=== PATIENT | female | born 1975 | race Two or more races ===

== ENCOUNTER → 2017-05-17 | Outpatient (CLI) | payer OTHER ==
--- NOTE | 2017-05-17 13:37 | REP ---
Digital diagnostic bilateral mammography with CAD and focused left breast sonography: History: Left breast lump. One lump is palpated by the patient and a separate area is palpated by the referring provider. One of these is described at 12 o'clock in the retroareolar region on the requisition. Comparison mammography July 06, 2016 and April 19, 2015. Mammographic findings: Radiopaque skin markers are affixed to the skin by the patient at the site of both the clinical breast exam lump and the patient's palpable lump. The former projects at approximately 12 o'clock and the latter in the upper outer quadrant of the left breast at 2 o'clock. Routine views of the left breast are augmented by magnified focal spot compression CC, MLO and true ML views. Breast parenchyma is heterogeneously dense in a pattern which inhibits the sensitivity of mammography. No neodensity is seen at the site of either palpable lump or elsewhere in either breast. No area of spiculation or architectural distortion is seen. No suspicious microcalcifications are observed. Sonographic findings: The left breast is examined from 11 o'clock to 12 o'clock in the area of the palpable abnormality. Heterogeneous fibroglandular background echotexture is seen. At 11 o'clock, 7.2 cm from the nipple is a 0.5 cm cyst. At 12 o'clock 2.3 cm from the nipple, there is a 0.4 cm cyst. This contains one or two tiny echogenic foci consistent with septation. No suspicious sonographic findings. Impression: BIRADS category II benign bilateral breast imaging. Dense breast parenchyma. Two small cysts seen by ultrasound in the region of the palpable lumps. This negative report should not dissuade one from biopsy of a palpable abnormality depending on its clinical characteristics. Clinical follow-up is recommended. BI-RADS/ACR category 2 mammogram. Benign finding(s). Routine annual screening mammography (for women over age 40). This mammogram was interpreted with the aid of an FDA-approved computer-aided detection system. The patient states she had a clinical breast exam in April 2017 The patient letter being requested is M2. Signed by Boris Allison MD 05/17/2017 03:06 P
== END ==
LOC: M RAD 11:03
PROVIDERS: ATTEND Midwife
DX: N60.12 Diffuse cystic mastopathy of left breast (principal)
CPT/HCPCS: 76642; G0204

== ENCOUNTER 2018-07-29 11:45 | Emergency (ER) | payer OTHER, SELFPAY ==
[2018-07-29 13:08] LABS: BASO # 0.1 10^3/uL (0.0-0.2); BASO % 0.7 % (0.0-1.0); EOS # 0.2 10^3/uL (0.0-0.50); EOS % 2.6 % (0.0-3.0); HEMATOCRIT 42.7 % (36.0-47.0); HEMOGLOBIN 13.8 g/dl (12.0-15.5); IMMATURE GRANULOCYTE % 0.5 % (0-3.0); LYMPH # 1.4 10^3/uL (1.5-4.5); LYMPH % 16.7 % (24.0-44.0); MEAN CORPUSCULAR HEMOGLOBIN 27.6 pg (27.0-33.0); MEAN CORPUSCULAR HGB CONC 32.3 g/dl (32.0-36.5); MEAN CORPUSCULAR VOLUME 85.4 fl (80.0-96.0); MONO # 0.5 10^3/uL (0.0-0.8); MONO % 5.5 % (0.0-5.0); NEUTROPHILS # 6.4 10^3/uL (1.8-7.7); PLATELET COUNT, AUTOMATED 261 10^3/uL (150-450); RED CELL DISTRIBUTION WIDTH 13.1 % (11.5-14.5); WHITE BLOOD COUNT 8.6 10^3/uL (4.0-10.0)
[2018-07-29 13:13] LABS: CONTROL LINE UCG INT CTR LINE PRESENT; URINE PREG TEST NEGATIVE (NEGATIVE)
[2018-07-29 13:14] LABS: AMORPHOUS SEDIMENT RFX SMALL (NEGATIVE); KETONE, URINE AUTO RFX NEGATIVE (NEGATIVE); LEUKOCYTE ESTERASE UR AUTO RFX NEGATIVE (NEGATIVE); MUCUS, URINE RFX SMALL (NEGATIVE); NITRITE, URINE AUTO RFX NEGATIVE (NEGATIVE); RBC, URINE AUTO RFX 2 /HPF (0-3); SPECIFIC GRAVITY UR AUTO RFX 1.008 (1.002-1.035); SQUAM EPITHELIAL CELL UR AURFX 5 /HPF (0-6); WBC, URINE AUTO RFX 4 /HPF (0-3)
[2018-07-29 14:34] LABS: ANION GAP 11 MEQ/L (8-16); BLOOD UREA NITROGEN 12 MG/DL (7-18); CALCIUM LEVEL 9.4 MG/DL (8.5-10.1); CARBON DIOXIDE LEVEL 23 MEQ/L (21-32); CHLORIDE LEVEL 109 MEQ/L (98-107); CREATININE FOR GFR 0.94 MG/DL (0.55-1.30); GLOMERULAR FILTRATION RATE > 60.0 (>58); GLUCOSE, FASTING 129 MG/DL (70-100); SODIUM LEVEL 143 MEQ/L (136-145)
== END 2018-07-29 14:58 | disposition home or self-care (01) ==
LOC: M ED 11:45
DX: N39.0 Urinary tract infection, site not specified (principal); F25.9 Schizoaffective disorder, unspecified; Z79.899 Other long term (current) drug therapy; Z88.1 Allergy status to other antibiotic agents
CPT/HCPCS: 84703

== ENCOUNTER → 2018-08-19 | Outpatient (CLI) | payer OTHER, SELFPAY ==
[~2018-08-19] MED LIST: FISH7.5C PO; LATU1TAB PO; LEVO25TA5 PO; LITH300C PO; MACR100C43 PO; MAGN64TASA PO; VITA100066 PO; ZOCO20TA PO; ZOLO100T PO
--- NOTE | 2018-08-19 16:32 | REPMRS ---
Patient History The patient states she had a clinical breast exam in 2017. No known family history of cancer. Taking unspecified hormones for 2 years. Digital Mammo Screening Bilat: August 19, 2018 - Exam #: [id number] Bilateral CC and MLO view(s) were taken. Technologist: Julia Acharya Technologist Prior study comparison: May 17, 2017, digital mammo diagnostic bilateral performed at [facility]. July 06, 2016, bilateral digital mammo screening bilat performed at [facility]. 2014, digital bilateral screening mammo, [facility]. FINDINGS: The breast tissue is extremely dense which could obscure a lesion on mammography. There is an extremely dense symmetrical pattern of residual fibroglandular tissue. There has been no change in the appearance of the mammogram from the previous studies. There is no interval development of dominant mass, archetectural distortion, or microcalcific cluster suggestive of malignancy. 3-D tomosynthesis shows no additional findings. Assessment: BI-RADS/ACR category 1 mammogram. Negative. Recommendation Routine screening mammogram of both breasts in 1 year (for women over age 40). This patient's Lifetime Breast Cancer RIsk is estimated at 13.9 %. This mammogram was interpreted with the aid of an FDA-approved computer-aided dectection system. Electronically Signed By: Dalton Allison MD 08/19/18 1555
== END ==
LOC: M RAD 12:25
PROVIDERS: ATTEND Midwife
DX: Z12.31 Encounter for screening mammogram for malignant neoplasm of breast (principal)

== ENCOUNTER → 2018-08-23 | Outpatient (REF) | payer OTHER | LOC: M SFHCLERA 10:32 | PROVIDERS: ATTEND Nurse Practitioner Family | DX: R39.15 Urgency of urination (principal) ==